=== PATIENT | male | born 1950 | race Caucasian/White ===

== ENCOUNTER 2017-09-04 13:26 | Emergency (ER) | payer MEDICARE, OTHER ==
--- NOTE | 2017-09-04 13:54 | EDM.PDOC ---
ED HPI GENERAL MEDICAL PROBLEM - General Chief Complaint: Lower Extremity Injury/Pain Stated Complaint: RT KNEE HURTS Time Seen by Provider: 09/04/17 13:28 Source of Information: Reports: Patient History Limitations: Reports: No Limitations - History of Present Illness INITIAL COMMENTS - FREE TEXT/NARRATIVE: HISTORY AND PHYSICAL: History of present illness: Patient is a 67-year-old male who presents to the emergency room today with complaints of right anterior and medial knee pain x 2 weeks. Pain is present with weightbearing and ambulation. He states this has been ongoing over the past 2 weeks. He has no known injury, trauma or falls. Has been using ibuprofen [id number] with minimal relief. He denies any numbness or tingling to the distal extremity. Review of systems: As per history of present illness and below otherwise all systems reviewed and negative. Past medical history: As per history of present illness and as reviewed below otherwise noncontributory. Surgical history: As per history of present illness and as reviewed below otherwise noncontributory. Social history: No reported history of drug or alcohol abuse. Family history: As per history of present illness and as reviewed below otherwise noncontributory. Physical exam: General: Well-developed and well-nourished 67-year-old male. Alert and oriented. Nontoxic appearing and in no acute distress. HEENT: Atraumatic, normocephalic, pupils equal and reactive bilaterally, negative for conjunctival pallor or scleral icterus, mucous membranes moist, throat clear, neck supple, nontender, trachea midline. No drooling or trismus noted. No meningeal signs Lungs: Clear to auscultation, breath sounds equal bilaterally, chest nontender. Heart: S1S2, regular rate and rhythm without overt murmur Abdomen: Soft, nondistended, nontender. Negative for masses or hepatosplenomegaly. Negative for costovertebral tenderness. Pelvis: Stable nontender. Genitourinary: Deferred. Rectal: Deferred. Skin: Intact, warm, dry. No lesions or rashes noted. Extremities: Atraumatic, no knee instability , mild tenderness with palpation to the right medial patella. No popliteal, calf, purcell tenderness or pain. He is negative for cords or calf pain. Neurovascular unremarkable. Neuro: Awake, alert, oriented. Cranial nerves II through XII unremarkable. Cerebellum unremarkable. Motor and sensory unremarkable throughout. Exam nonfocal. Notes: Skin appears intact, no evidence of erythema or cellulitis. X-ray shows right knee joint effusion, subluxation of the patellar laterally in relation to the patellar groove. No fractures noted. We discussed the limitations of x-ray. Will place patient in a knee brace and provided crutches. He declined crutches states he does use a cane which she has available to him. Discussed appropriate follow-up with the orthopedic provider as needs further evaluation/management next week. #15 Tramadol RX. Medication education completed. Both patient and voice understanding and are agreeable to plan of care. They deny any further questions at this time. Diagnostics: Xray Therapeutics: Knee brace, crutches Impression: Right knee joint effusion Plan: 1. Rice, elevate and ice the affected extremity. Please use the brace and cane to be non-weight bearing. 2. Tylenol and/or ibuprofen as needed for pain management. Tramadol for moderate /severe pain. Will cause drowsiness, so do not take while driving or needing to be functioning outside the house. 3. Follow-up with orthopedics next week. Return to the ED as needed and as discussed. Definitive disposition and diagnosis as appropriate pending reevaluation and review of above. Duration: Week(s): Location: Reports: Lower Extremity, Right right knee Pain Score (Numeric/FACES): 9 - Related Data Allergies Allergy/AdvReac Type Severity Reaction Status Date / Time nicotine Allergy Rash Verified 09/04/17 13:39 Home Meds: Home Meds DULoxetine [Cymbalta] 60 mg PO DAILY 10/22/13 [History] Levothyroxine [Levothroid] 0.15 mg PO DAILY 10/22/13 [History] [place] Carbonate [Eskalith] 300 mg PO QAM 10/22/13 [History] Moexipril HCl [Moexipril] 15 mg PO DAILY 10/22/13 [History] amLODIPine Besylate [Amlodipine Besylate] 10 mg PO DAILY 10/22/13 [History] lamoTRIgine [Lamictal] 200 mg PO BID 10/22/13 [History] Ibuprofen [Motrin] 600 mg PO Q8H PRN 08/26/15 [History] Clopidogrel [Plavix] 75 mg PO DAILY 04/11/16 [History] [place] Carbonate 600 mg PO BEDTIME 04/11/16 [History] Nitroglycerin [Nitrostat] 0.4 mg SL Q5M PRN 04/11/16 [History] atorvaSTATin Calcium [Atorvastatin Calcium] 40 mg PO DAILY 04/11/16 [History] Past Medical History HEENT History: Reports: None Other HEENT History: glasses Cardiovascular History: Reports: Hypertension, Other (See Below) Other Cardiovascular History: percarditis Respiratory History: Reports: None Gastrointestinal History: Reports: None Genitourinary History: Reports: None Musculoskeletal History: Reports: None Neurological History: Reports: None Psychiatric History: Reports: Bipolar Endocrine/Metabolic History: Reports: Hypothyroidism Hematologic History: Reports: None Immunologic History: Reports: None Oncologic (Cancer) History: Reports: None Dermatologic History: Reports: None - Infectious Disease History Infectious Disease History: Reports: Mumps - Past Surgical History Head Surgeries/Procedures: Reports: None Cardiovascular Surgical History: Reports: Coronary Artery Stent Social & Family History - Family History Family Medical History: Noncontributory - Tobacco Use Smoking Status *Q: Former Smoker Used Tobacco, but Quit: Yes Month/Year Tobacco Last Used: 2 years - Caffeine Use Caffeine Use: Reports: Coffee - Alcohol Use Days Per Week of Alcohol Use: 1 Number of Drinks Per Day: 2 Total Drinks Per Week: 2 - Recreational Drug Use Recreational Drug Use: No Review of Systems - Review of Systems Review Of Systems: ROS reveals no pertinent complaints other than HPI. ED EXAM, GENERAL - Physical Exam Exam: See Below (See dictation) Course - Vital Signs Last Recorded V/S: Last Vital Signs Temp 97.0 F 09/04/17 13:39 Pulse 73 09/04/17 13:39 Resp 18 09/04/17 13:39 BP 148/85 H 09/04/17 13:39 Pulse Ox 97 09/04/17 13:39 - Orders/Labs/Meds Orders: Active Orders 24 hr Category Date Time Status Knee 3V Rt [CR] Stat Exams 09/04/17 13:46 Ordered DME for Discharge [COMM] Stat Oth 09/04/17 14:21 Ordered Departure - Departure Time of Disposition: 14:33 Disposition: Home, Self-Care 01 Clinical Impression: Knee effusion, right - Discharge Information Referrals: PCP,None [Primary Care Provider] - Forms: ED Department Discharge Additional Instructions: The following information is given to patients seen in the emergency department who are being discharged to home. This information is to outline your options for follow-up care. We provide all patients seen in our emergency department with a follow-up referral. The need for follow-up, as well as the timing and circumstances, are variable depending upon the specifics of your emergency department visit. If you don't have a primary care physician on staff, we will provide you with a referral. We always advise you to contact your personal physician following an emergency department visit to inform them of the circumstance of the visit and for follow-up with them and/or the need for any referrals to a consulting specialist. The emergency department will also refer you to a specialist when appropriate. This referral assures that you have the opportunity for follow-up care with a specialist. All of these measure are taken in an effort to provide you with optimal care, which includes your follow-up. Under all circumstances we always encourage you to contact your private physician who remains a resource for coordinating your care. When calling for follow-up care, please make the office aware that this follow-up is from your recent emergency room visit. If for any reason you are refused follow-up, please contact the [facility] Emergency Department at and asked to speak to the emergency department charge nurse. [facility] Special[facility] - Orth[facility] Clinic [address], [address] [place] [address] 1. Rice, elevate and ice the affected extremity. Please use the brace and cane to be non-weight bearing. 2. Tylenol and/or ibuprofen as needed for pain management. Tramadol for moderate /severe pain. Will cause drowsiness, so do not take while driving or needing to be functioning outside the house. 3. Follow-up with orthopedics next week. Return to the ED as needed and as discussed. - My Orders Last 24 Hours: My Active Orders 09/04/17 13:46 Knee 3V Rt [CR] Stat 09/04/17 14:21 DME for Discharge [COMM] Stat - Assessment/Plan Last 24 Hours: My Active Orders 09/04/17 13:46 Knee 3V Rt [CR] Stat 09/04/17 14:21 DME for Discharge [COMM] Stat
[2017-09-04 15:10] VITALS: BP 136/78
--- NOTE | 2017-09-06 09:10 | CR ---
EXAM DATE: 09/04/17 PATIENT'S AGE: 67 Patient: CHRIS YUN Facility: [place], [place] Site . Site : 1950 Study: XRay Knee Right [id number]/[id number] 2:08:12 PM Ordering Physician: Doctor Delgado Final Report: INDICATION: Pain. FINDINGS: Three views of the right knee were obtained. There is a joint effusion. There is no acute fracture seen or dislocation. There are minimal spurs off the patella. The right patella is slightly subluxed laterally in relationship to patellar groove. IMPRESSION: Right knee joint effusion. Subluxation of the patella laterally in relationship to the patellar groove. No acute fracture seen. Dictated by Hamilton Win MD @ 09/04/2017 2:24:54 PM Dictated by: Hamilton Win MD @ 09/04/2017 14:25:12 (Electronic Signature) Report Signed by Proxy. [email or web address]
== END 2017-09-04 15:00 | disposition home or self-care (01) ==
LOC: MW.ED 13:26
DX: M25.461 Effusion, right knee (principal); I10 Essential (primary) hypertension; F31.9 Bipolar disorder, unspecified; E03.9 Hypothyroidism, unspecified; Z87.891 Personal history of nicotine dependence; Z91.09 Other allergy status, other than to drugs and biological substances; Z79.899 Other long term (current) drug therapy
CPT/HCPCS: 73562-26-RT; 73562-RT; 99283

== ENCOUNTER 2017-10-22 09:50 | Day surgery (SDC) | payer MEDICARE ==
[~2017-10-22 09:50] MED LIST: Lactated Ringers 1,000 ML IV SCH
[2017-10-22] MEDS ORDERED: Lidocaine 2% 5 ML SDV ONE (09:53)
[2017-10-22] MEDS ORDERED: Propofol 200 MG/20 ML SDV ONE ×2 (09:54→10:56)
[2017-10-22] MEDS ORDERED: fentaNYL 100 MCG/2 ML SDV ONE (09:54)
--- NOTE | 2017-10-22 10:22 | PCM.PREANE ---
Preanesthetic Assessment - Anesthesia/Transfusion/Family Hx Anesthesia History: Prior Anesthesia Without Reaction Family History of Anesthesia Reaction: No Transfusion History: No Prior Transfusion(s) - Review of Systems General: No Symptoms Pulmonary: No Symptoms Cardiovascular: No Symptoms Gastrointestinal: No Symptoms Neurological: No Symptoms Other: Reports: None - Physical Assessment NPO Status Date: 10/21/17 NPO Status Time: 23:00 Height: 5 ft 7 in Weight: 99.337 kg ASA Class: 3 Mental Status: Alert & Oriented x3 Airway Class: Mallampati = 2 Dentition: Reports: Normal Dentition Thyro-Mental Finger Breadths: 2 Mouth Opening Finger Breadths: 2 ROM/Head Extension: Full Lungs: Clear to Auscultation, Normal Respiratory Effort Cardiovascular: Regular Rate, Regular Rhythm - Allergies Allergies/Adverse Reactions: Allergies Allergy/AdvReac Type Severity Reaction Status Date / Time nicotine Allergy Rash Verified 10/18/17 14:51 - Acknowledgements Anesthesia Type Planned: MAC Pt an Appropriate Candidate for the Planned Anesthesia: Yes Alternatives and Risks of Anesthesia Discussed w Pt/Guardian: Yes Pt/Guardian Understands and Agrees with Anesthesia Plan: Yes PreAnesthesia Questionnaire HEENT History: Reports: Other (See Below) Other HEENT History: wears glasses Cardiovascular History: Reports: CAD (With two heart stents), High Cholesterol, Hypertension Other Cardiovascular History: percarditis Respiratory History: Reports: Sleep Apnea Other Respiratory History: uses CPAP Gastrointestinal History: Reports: None Genitourinary History: Reports: None Musculoskeletal History: Reports: None Neurological History: Reports: Other (See Below) Other Neuro History: some dementia Psychiatric History: Reports: Bipolar (Controlled) Endocrine/Metabolic History: Reports: Hypothyroidism, Obesity/BMI 30+ Hematologic History: Reports: None Immunologic History: Reports: None Oncologic (Cancer) History: Reports: None Dermatologic History: Reports: None - Infectious Disease History Infectious Disease History: Reports: Mumps - Past Surgical History Cardiovascular Surgical History: Reports: Coronary Artery Stent Other Cardiovascular Surgeries/Procedures: angioplasty with stent insertion x2 GI Surgical History: Reports: Colonoscopy, EGD - SUBSTANCE USE Smoking Status *Q: Former Smoker Tobacco Use Within Last Twelve Months: No Recreational Drug Use History: No - HOME MEDS Home Medications: Home Meds DULoxetine [Cymbalta] 60 mg PO BEDTIME 10/22/13 [History] Levothyroxine [Levothroid] 0.15 mg PO QAM 10/22/13 [History] [place] Carbonate [Eskalith] 300 mg PO QAM 10/22/13 [History] Moexipril HCl [Moexipril] 15 mg PO QAM 10/22/13 [History] amLODIPine Besylate [Amlodipine Besylate] 10 mg PO QAM 10/22/13 [History] lamoTRIgine [Lamictal] 200 mg PO BID 10/22/13 [History] Clopidogrel [Plavix] 75 mg PO DAILY 04/11/16 [History] [place] Carbonate 600 mg PO BEDTIME 04/11/16 [History] Nitroglycerin [Nitrostat] 0.4 mg SL Q5M PRN 04/11/16 [History] atorvaSTATin Calcium [Atorvastatin Calcium] 40 mg PO BEDTIME 04/11/16 [History] Cholecalciferol (Vitamin D3) [Vitamin D3] 1,000 unit PO DAILY 10/18/17 [History] Donepezil HCl 10 mg PO QAM 10/18/17 [History] Folic Acid 800 mcg PO DAILY 10/18/17 [History] - CURRENT (IN HOUSE) MEDS Current Meds: Current Medications Lactated Ringer's (Ringers, Lactated) 1,000 mls @ 125 mls/hr IV ASDIRECTED ANNETTE Discontinued Medications Fentanyl (Sublimaze) Confirm Administered Dose 100 mcg .ROUTE .STK-MED ONE Stop: 10/22/17 09:55 Lactated Ringer's (Ringers, Lactated) 1,000 mls @ 125 mls/hr IV ASDIRECTED [facility] Lidocaine (Xylocaine-Mpf 2%) Confirm Administered Dose 5 ml .ROUTE .STK-MED ONE Stop: 10/22/17 09:54 Propofol (Diprivan 20 Ml) Confirm Administered Dose 400 mg .ROUTE .STK-MED ONE Stop: 10/22/17 09:55
--- NOTE | 2017-10-22 11:13 | PCM.OPNOTE ---
- General Post-Op/Procedure Note Date of Surgery/Procedure: 10/22/17 Operative Procedure(s): Colonoscopy w/ cold rectal polypectomy Pre Op Diagnosis: Desire for colorectal cancer screening Post-Op Diagnosis: Rectal polyp. Sigmoid diverticulosis. Anesthesia Technique: MAC (ASA III) Primary Surgeon: Néstor Paul Condition: Good Free Text/Narrative:: DICTATION [id number] CPT CODE 81441
[2017-10-22] MEDS ORDERED: Lactated Ringers 1,000 ML IV SCH (11:15)
--- NOTE | 2017-10-22 11:34 | PCM.POSTAN ---
POST ANESTHESIA ASSESSMENT - MENTAL STATUS Mental Status: Alert, Oriented - RESPIRATORY Respiratory Status: Respiratory Rate WNL, Airway Patent, O2 Saturation Stable - CARDIOVASCULAR CV Status: Pulse Rate WNL, Blood Pressure Stable - GASTROINTESTINAL GI Status: No Symptoms - POST OP HYDRATION Hydration Status: Adequate & Stable
--- NOTE | 2017-10-22 11:55 | PCM48HPAN ---
Post Anesthesia Note - EVALUATION WITHIN 48HRS OF ANESTHETIC Vital Signs in Normal Range: Yes Patient Participated in Evaluation: Yes Respiratory Function Stable: Yes Airway Patent: Yes Cardiovascular Function Stable: Yes Hydration Status Stable: Yes Pain Control Satisfactory: Yes Nausea and Vomiting Control Satisfactory: Yes Mental Status Recovered: Yes Resp Rate: 14
[2017-10-22 12:00] VITALS: BP 145/83
--- NOTE | 2017-10-22 12:35 | OR ---
SURGEON: Néstor Paul M.D. DATE OF PROCEDURE: 10/22/2017 OPERATION PERFORMED: Colonoscopy with cold rectal polypectomy. ANESTHESIA: MAC. ASA CLASSIFICATION: III. PREOPERATIVE DIAGNOSIS: Desire for colorectal cancer screening. POSTOPERATIVE DIAGNOSES: 1. Rectal polyp. 2. Sigmoid diverticulosis. DESCRIPTION OF PROCEDURE: The patient was taken to the endoscopy room and positioned on the endoscopy table in the left lateral decubitus position. Time-out was called for appropriate identification of the patient and procedure. Monitored anesthesia care was provided. The colonoscope was inserted into the rectum and advanced with minimal difficulty to the cecum where the colonoscope was retroflexed to visualize the ascending colon from below. The colonoscope was then straightened and slowly withdrawn. The cecum, ascending colon, hepatic flexure, transverse colon, splenic flexure, and descending colon showed no tumors, polyps, diverticula, angiodysplasia, or evidence of inflammatory bowel disease. Sigmoid colon demonstrates moderate diverticular change. No stricture, spasm, or bleeding was noted. The colonoscope was withdrawn to the rectum where a polyp was encountered. This was removed with multiple bites of the cold biopsy forceps. Minimal oozing was noted. The colonoscope was then retroflexed to visualize the anal orifice from above. No tumors or polyps were seen. The patient does have chronic hemorrhoidal changes, but nothing acute. No bleeding was noted. The colonoscope was straightened, the rectum aspirated, and the colonoscope removed. The patient tolerated the procedure well and was taken to recovery room in stable condition. BHUPINDER / ERICKSON /[id number]
== END 2017-10-22 11:50 | disposition home or self-care (01) ==
LOC: MW.SDS 09:50
PROVIDERS: ATTEND Surgery
DX: Z12.11 Encounter for screening for malignant neoplasm of colon (principal); K62.1 Rectal polyp; K57.30 Diverticulosis of large intestine without perforation or abscess without bleeding; E03.9 Hypothyroidism, unspecified; I25.10 Atherosclerotic heart disease of native coronary artery without angina pectoris; I10 Essential (primary) hypertension; M17.11 Unilateral primary osteoarthritis, right knee; G47.33 Obstructive sleep apnea (adult) (pediatric); Z99.89 Dependence on other enabling machines and devices; E66.9 Obesity, unspecified; Z68.34 Body mass index [BMI] 34.0-34.9, adult; F31.9 Bipolar disorder, unspecified; Z91.048 Other nonmedicinal substance allergy status; Z79.02 Long term (current) use of antithrombotics/antiplatelets; Z79.899 Other long term (current) drug therapy; Z87.891 Personal history of nicotine dependence
CPT/HCPCS: 88305; J2704; J3010; J7120

== ENCOUNTER 2018-01-06 10:29 | Emergency (ER) | payer MEDICARE ==
--- NOTE | 2018-01-06 11:12 | EDM.PDOC ---
ED HPI GENERAL MEDICAL PROBLEM - General Chief Complaint: Upper Extremity Injury/Pain Stated Complaint: LT SHOULDER HURTS Time Seen by Provider: 01/06/18 10:34 Source of Information: Reports: Patient History Limitations: Reports: No Limitations - History of Present Illness INITIAL COMMENTS - FREE TEXT/NARRATIVE: History of present illness: []Patient complains of left shoulder and clavicular pain that began after falling out of a boat 2 weeks ago. His pain has not improved and has been persistent. He denies any chest pain or shortness of breath, fevers or cough. Patient has been taking ibuprofen without full relief and had an old prescription of tramadol which is helping.. Review of systems: As per history of present illness and below otherwise all systems reviewed and negative. Past medical history: As per history of present illness and as reviewed below otherwise noncontributory. Surgical history: As per history of present illness and as reviewed below otherwise noncontributory. Social history: No reported history of drug or alcohol abuse. Family history: As per history of present illness and as reviewed below otherwise noncontributory. Physical exam: General: Well developed, well nourished in NAD HEENT: Atraumatic, normocephalic, pupils reactive, negative for conjunctival pallor or scleral icterus, mucous membranes moist, throat clear, neck supple, nontender, trachea midline. Lungs: Clear to auscultation, breath sounds equal bilaterally, abnormal tenderness over her left distal third clavicle with out gross deformity Heart: S1S2, regular, negative for clicks, rubs, or JVD. Abdomen: Soft, nondistended, nontender. Negative for masses or hepatosplenomegaly. Negative for costovertebral tenderness. Pelvis: Stable nontender. Genitourinary: Deferred. Rectal: Deferred. Extremities: Atraumatic, negative for cords or calf pain. Neurovascular unremarkable. Neuro: Awake, alert, oriented. Cranial nerves II through XII unremarkable. Cerebellum unremarkable. Motor and sensory unremarkable throughout. Exam nonfocal. Skin:warm and dry Diagnostics: Left shoulder and clavicular x-ray shows nondisplaced clavicular fracture third Therapeutics: None ED Course: Unremarkable Impression: Nondisplaced distal third clavicular fracture Prescriptions: Tramadol Plan: Where the arm sling at home, tramadol for pain, follow-up with primary care, turn if symptoms worsen or change Definitive disposition and diagnosis as appropriate pending reevaluation and review of above. Left Shoulder Pain Score (Numeric/FACES): 9 - Related Data Allergies Allergy/AdvReac Type Severity Reaction Status Date / Time nicotine Allergy Rash Verified 01/06/18 11:04 Home Meds: Home Meds DULoxetine [Cymbalta] 60 mg PO BEDTIME 10/22/13 [History] Levothyroxine [Levothroid] 0.15 mg PO QAM 10/22/13 [History] [place] Carbonate [Eskalith] 300 mg PO QAM 10/22/13 [History] Moexipril HCl [Moexipril] 15 mg PO QAM 10/22/13 [History] amLODIPine Besylate [Amlodipine Besylate] 10 mg PO QAM 10/22/13 [History] lamoTRIgine [Lamictal] 200 mg PO BID 10/22/13 [History] Clopidogrel [Plavix] 75 mg PO ASDIRECTED 04/11/16 [History] [place] Carbonate 300 mg PO BEDTIME 04/11/16 [History] Nitroglycerin [Nitrostat] 0.4 mg SL Q5M PRN 04/11/16 [History] atorvaSTATin Calcium [Atorvastatin Calcium] 40 mg PO BEDTIME 04/11/16 [History] Cholecalciferol (Vitamin D3) [Vitamin D3] 1,000 unit PO DAILY 10/18/17 [History] Donepezil HCl 10 mg PO QAM 10/18/17 [History] Folic Acid 800 mcg PO DAILY 10/18/17 [History] traMADol HCl [Tramadol HCl] 50 mg PO Q6H PRN #16 tablet 01/06/18 [Rx] Past Medical History HEENT History: Reports: Other (See Below) Other HEENT History: wears glasses Cardiovascular History: Reports: CAD (With two heart stents), High Cholesterol, Hypertension Other Cardiovascular History: percarditis Respiratory History: Reports: Sleep Apnea Other Respiratory History: uses CPAP Gastrointestinal History: Reports: None Genitourinary History: Reports: None Musculoskeletal History: Reports: None Neurological History: Reports: Other (See Below) Other Neuro History: some dementia Psychiatric History: Reports: Bipolar (Controlled) Endocrine/Metabolic History: Reports: Hypothyroidism, Obesity/BMI 30+ Hematologic History: Reports: None Immunologic History: Reports: None Oncologic (Cancer) History: Reports: None Dermatologic History: Reports: None - Infectious Disease History Infectious Disease History: Reports: Mumps - Past Surgical History Cardiovascular Surgical History: Reports: Coronary Artery Stent Other Cardiovascular Surgeries/Procedures: angioplasty with stent insertion x2 GI Surgical History: Reports: Colonoscopy, EGD Social & Family History - Family History Family Medical History: Noncontributory - Caffeine Use Caffeine Use: Reports: Coffee Review of Systems - Review of Systems Review Of Systems: ROS reveals no pertinent complaints other than HPI. ED EXAM, GENERAL - Physical Exam Exam: See Below (The history of present illness) Course - Vital Signs Last Recorded V/S: Last Vital Signs Temp 97.5 F 01/06/18 11:05 Pulse 71 01/06/18 11:05 Resp 18 01/06/18 11:05 BP 108/71 01/06/18 11:05 Pulse Ox 97 01/06/18 11:05 - Orders/Labs/Meds Orders: Active Orders 24 hr Category Date Time Status Clavicle Lt [CR] Stat Exams 01/06/18 11:12 Taken Shoulder Comp Lt [CR] Stat Exams 01/06/18 11:11 Taken Departure - Departure Time of Disposition: 11:40 Disposition: Home, Self-Care 01 Condition: Good Clinical Impression: Closed left clavicular fracture Qualifiers: Encounter type: initial encounter Clavicle location: shaft Fracture alignment: nondisplaced Qualified Code(s): S42.025A - Nondisplaced fracture of shaft of left clavicle, initial encounter for closed fracture - Discharge Information *PRESCRIPTION DRUG MONITORING PROGRAM REVIEWED*: No *COPY OF PRESCRIPTION DRUG MONITORING REPORT IN PATIENT RAINER: No Prescriptions: traMADol HCl [Tramadol HCl] 50 mg PO Q6H PRN #16 tablet PRN Reason: Pain Referrals: Jn Winston MD [Primary Care Provider] - Forms: ED Department Discharge Additional Instructions: The following information is given to patients seen in the emergency department who are being discharged to home. This information is to outline your options for follow-up care. We provide all patients seen in our emergency department with a follow-up referral. The need for follow-up, as well as the timing and circumstances, are variable depending upon the specifics of your emergency department visit. If you don't have a primary care physician on staff, we will provide you with a referral. We always advise you to contact your personal physician following an emergency department visit to inform them of the circumstance of the visit and for follow-up with them and/or the need for any referrals to a consulting specialist. The emergency department will also refer you to a specialist when appropriate. This referral assures that you have the opportunity for follow-up care with a specialist. All of these measure are taken in an effort to provide you with optimal care, which includes your follow-up. Under all circumstances we always encourage you to contact your private physician who remains a resource for coordinating your care. When calling for follow-up care, please make the office aware that this follow-up is from your recent emergency room visit. If for any reason you are refused follow-up, please contact the [facility] Emergency Department at and asked to speak to the emergency department charge nurse. Tramadol as directed, use her arm sling at home for comfort, follow up with primary care as needed, return to ER if any symptoms worsen or change. [facility] [address] [place] [id number] - My Orders Last 24 Hours: My Active Orders 01/06/18 11:11 Shoulder Comp Lt [CR] Stat 01/06/18 11:12 Clavicle Lt [CR] Stat - Assessment/Plan Last 24 Hours: My Active Orders 01/06/18 11:11 Shoulder Comp Lt [CR] Stat 01/06/18 11:12 Clavicle Lt [CR] Stat
--- NOTE | 2018-01-06 11:48 | CR ---
EXAMINATION: Left shoulder and left clavicle HISTORY: Pain COMPARISON: None TECHNIQUE: 3 views of the left shoulder and 2 views clavicle FINDINGS: There is a nondisplaced mid left clavicle fracture identified. The remaining osseous struct ures and joint spaces appear intact. Bone mineralization is normal. Mild acromioclavicular osteoarthr itic changes. IMPRESSION: 1. Nondisplaced mid left clavicle fracture.
[2018-01-06 11:59] VITALS: BP 133/83
== END 2018-01-06 12:01 | disposition home or self-care (01) ==
LOC: MW.ED 10:29
DX: S42.025A Nondisplaced fracture of shaft of left clavicle, initial encounter for closed fracture (principal); I10 Essential (primary) hypertension; I25.10 Atherosclerotic heart disease of native coronary artery without angina pectoris; E78.00 Pure hypercholesterolemia, unspecified; E03.9 Hypothyroidism, unspecified; W17.89XA Other fall from one level to another, initial encounter; Y92.814 Boat as the place of occurrence of the external cause; Z88.8 Allergy status to other drugs, medicaments and biological substances; Z79.899 Other long term (current) drug therapy; Z87.891 Personal history of nicotine dependence
CPT/HCPCS: 73000-26-LT; 73000-LT; 73030-26-LT; 73030-LT; 99282; 99283

== ENCOUNTER 2019-03-24 16:22 | Emergency (ER) | payer MEDICARE ==
[2019-03-24 16:42] VITALS: BP 133/79; PULSE 82
[2019-03-24] MEDS ORDERED: Diphtheria,Pertussis(Acell),Tetanus Vaccine 0.5 ML Syringe IM ONE (17:19)
[2019-03-24] MEDS ORDERED: Bacitracin Oint 1 GM U/D Packet TOP ONE (17:19)
--- NOTE | 2019-03-24 17:25 | EDM.PDOC ---
ED HPI GENERAL MEDICAL PROBLEM - General Chief Complaint: Wound Recheck Stated Complaint: FISH HOOK STUCK IN RIGHT MIDDLE FINGER Time Seen by Provider: 03/24/19 17:19 Source of Information: Reports: Patient History Limitations: Reports: Intoxication - History of Present Illness INITIAL COMMENTS - FREE TEXT/NARRATIVE: HISTORY AND PHYSICAL: History of present illness: Patient is a 69-year-old male presents to the ED with complaint of fish hook to his finger that occurred just prior to arrival to the ED. Patient is not UTD on his tetanus. Patient has no other complaints at this time. Review of systems: As per history of present illness and below otherwise all systems reviewed and negative. Past medical history: As per history of present illness and as reviewed below otherwise noncontributory. Surgical history: As per history of present illness and as reviewed below otherwise noncontributory. Social history: No reported history of drug or alcohol abuse. Family history: As per history of present illness and as reviewed below otherwise noncontributory. Physical exam: General: Patient sitting comfortably in no acute distress and nontoxic appearing HEENT: Atraumatic, normocephalic, pupils reactive, negative for conjunctival pallor or scleral icterus, mucous membranes moist, throat clear, neck supple, nontender, trachea midline. No meningeal signs. Lungs: Clear to auscultation, breath sounds equal bilaterally, chest nontender. Heart: S1S2, regular, negative for clicks, rubs, or overt murmur. Abdomen: Soft, nondistended, nontender. Negative for masses or hepatosplenomegaly. Negative for costovertebral tenderness. No rigidity, rebound , guarding. Pelvis: Stable nontender. Genitourinary: Deferred. Rectal: Deferred. Extremities: There is a 3 prong fish hook to the distal right middle finger. negative for cords or calf pain. Neurovascular unremarkable. Neuro: Awake, alert, oriented. Cranial nerves II through XII unremarkable. Cerebellum unremarkable. Motor and sensory unremarkable throughout. Exam nonfocal. Notes: The two extra prongs were clipped. A piece of gauzed was placed underneath the hook and light pressure applied downward on the hook and the gauze was pulled swiftly and successfully pulled the hook out with minimal bleeding. Patient tolerated well. Wound dressing placed by nursing staff. Diagnostics: Therapeutics: tdap Prescriptions: Impression: Foreign body removal of skin Definitive disposition and diagnosis as appropriate pending reevaluation and review of above. right middle finger Pain Score (Numeric/FACES): 6 - Related Data Allergies Allergy/AdvReac Type Severity Reaction Status Date / Time nicotine Allergy Rash Verified 03/24/19 16:42 Home Meds: Home Meds DULoxetine [Cymbalta] 60 mg PO BEDTIME 10/22/13 [History] Levothyroxine [Levothroid] 0.15 mg PO QAM 10/22/13 [History] [place] Carbonate [Eskalith] 300 mg PO QAM 10/22/13 [History] Moexipril HCl [Moexipril] 15 mg PO QAM 10/22/13 [History] amLODIPine Besylate [Amlodipine Besylate] 10 mg PO QAM 10/22/13 [History] lamoTRIgine [Lamictal] 200 mg PO BID 10/22/13 [History] Clopidogrel [Plavix] 75 mg PO ASDIRECTED 04/11/16 [History] [place] Carbonate 300 mg PO BEDTIME 04/11/16 [History] Nitroglycerin [Nitrostat] 0.4 mg SL Q5M PRN 04/11/16 [History] atorvaSTATin Calcium [Atorvastatin Calcium] 40 mg PO BEDTIME 04/11/16 [History] Donepezil HCl 10 mg PO QAM 10/18/17 [History] Past Medical History HEENT History: Reports: Other (See Below) Other HEENT History: wears glasses Cardiovascular History: Reports: CAD, High Cholesterol, Hypertension Other Cardiovascular History: percarditis Respiratory History: Reports: Sleep Apnea Other Respiratory History: uses CPAP Gastrointestinal History: Reports: None Genitourinary History: Reports: None Musculoskeletal History: Reports: None Neurological History: Reports: Other (See Below) Other Neuro History: some dementia Psychiatric History: Reports: Anxiety, Bipolar, Depression Endocrine/Metabolic History: Reports: Hypothyroidism, Obesity/BMI 30+ Hematologic History: Reports: None Immunologic History: Reports: None Oncologic (Cancer) History: Reports: None Dermatologic History: Reports: None - Infectious Disease History Infectious Disease History: Reports: Chicken Pox - Past Surgical History Head Surgeries/Procedures: Reports: None Cardiovascular Surgical History: Reports: Coronary Artery Stent Other Cardiovascular Surgeries/Procedures: angioplasty with stent insertion x2 GI Surgical History: Reports: Colonoscopy, EGD Social & Family History - Family History Family Medical History: Noncontributory - Tobacco Use Smoking Status *Q: Never Smoker - Caffeine Use Caffeine Use: Reports: Coffee - Recreational Drug Use Recreational Drug Use: No ED ROS GENERAL - Review of Systems Review Of Systems: Comprehensive ROS is negative, except as noted in HPI. ED EXAM, SKIN/RASH Exam: See Below (see dictation) Course - Vital Signs Last Recorded V/S: Last Vital Signs Temp 97.8 F 03/24/19 16:40 Pulse 82 03/24/19 16:40 Resp 16 03/24/19 16:40 BP 133/79 03/24/19 16:40 Pulse Ox 95 03/24/19 16:40 - Orders/Labs/Meds Orders: Active Orders 24 hr Category Date Time Status Vaccines to be Administered [RC] PER UNIT ROUTINE Care 03/24/19 17:19 Ordered Meds: Medications Discontinued Medications Generic Name Dose Route Start Last Admin Trade Name Freq PRN Reason Stop Dose Admin Bacitracin 1 dose 03/24/19 17:19 Bacitracin Oint 1 Gm TOP 03/24/19 17:20 ONETIME ONE Diphtheria/Tetanus/Acell Pertussis 0.5 ml 03/24/19 17:19 Adacel IM 03/24/19 17:20 .ONCE ONE Departure - Departure Time of Disposition: 17:25 Disposition: Home, Self-Care 01 Condition: Good Clinical Impression: Fish hook injury of finger of right hand - Discharge Information Referrals: Jn Winston MD [Primary Care Provider] - Forms: ED Department Discharge Care Plan Goals: The following information is given to patients seen in the emergency department who are being discharged to home. This information is to outline your options for follow-up care. We provide all patients seen in our emergency department with a follow-up referral. The need for follow-up, as well as the timing and circumstances, are variable depending upon the specifics of your emergency department visit. If you don't have a primary care physician on staff, we will provide you with a referral. We always advise you to contact your personal physician following an emergency department visit to inform them of the circumstance of the visit and for follow-up with them and/or the need for any referrals to a consulting specialist. The emergency department will also refer you to a specialist when appropriate. This referral assures that you have the opportunity for follow-up care with a specialist. All of these measure are taken in an effort to provide you with optimal care, which includes your follow-up. Under all circumstances we always encourage you to contact your private physician who remains a resource for coordinating your care. When calling for follow-up care, please make the office aware that this follow-up is from your recent emergency room visit. If for any reason you are refused follow-up, please contact the [facility] Emergency Department at and asked to speak to the emergency department charge nurse. [facility] [address] [place] [address] [id number] [address] [id number] Keep the area clean and dry as instructed Follow up with primary care provider Return to ED as needed as discussed Sepsis Event Note - Evaluation Sepsis Screening Result: No Definite Risk - Focused Exam Vital Signs: Vital Signs Temp Pulse Resp BP Pulse Ox 03/24/19 16:40 97.8 F 82 16 133/79 95 Date Exam was Performed: 03/24/19 Time Exam was Performed: 17:25 - My Orders Last 24 Hours: My Active Orders 03/24/19 17:19 Vaccines to be Administered [RC] PER UNIT ROUTINE - Assessment/Plan Last 24 Hours: My Active Orders 03/24/19 17:19 Vaccines to be Administered [RC] PER UNIT ROUTINE
== END 2019-03-24 17:47 | disposition home or self-care (01) ==
LOC: MW.ED 16:22
DX: S60.452A Superficial foreign body of right middle finger, initial encounter (principal); Z23 Encounter for immunization; I10 Essential (primary) hypertension; I25.10 Atherosclerotic heart disease of native coronary artery without angina pectoris; E78.00 Pure hypercholesterolemia, unspecified; F41.9 Anxiety disorder, unspecified; F32.9 Major depressive disorder, single episode, unspecified; E03.9 Hypothyroidism, unspecified; E66.9 Obesity, unspecified; Z68.35 Body mass index [BMI] 35.0-35.9, adult; Z88.8 Allergy status to other drugs, medicaments and biological substances; Z79.899 Other long term (current) drug therapy; Z79.02 Long term (current) use of antithrombotics/antiplatelets; W45.8XXA Other foreign body or object entering through skin, initial encounter
CPT/HCPCS: 90471; 90715; 99283; 99283-25

== ENCOUNTER 2022-01-15 17:54 | Emergency (ER) | payer OTHER, MEDICARE ==
[2022-01-15] MEDS: Diphtheria,Pertussis(Acell),Tetanus Vaccine 0.5 ML Syringe IM ONE (18:41)
[2022-01-15 19:15] VITALS: BP 133/71; PULSE 75
[2022-01-15] MEDS: Acetaminophen 325 MG Tab PO ONE (19:30)
== END 2022-01-15 19:55 | disposition home or self-care (01) ==
LOC: MW.ED 17:54
DX: S09.90XA Unspecified injury of head, initial encounter (principal); I25.10 Atherosclerotic heart disease of native coronary artery without angina pectoris; I10 Essential (primary) hypertension; E66.9 Obesity, unspecified; Z68.44 Body mass index [BMI] 60.0-69.9, adult; Z79.899 Other long term (current) drug therapy; Z88.8 Allergy status to other drugs, medicaments and biological substances; Z23 Encounter for immunization; V69.00XA Driver of heavy transport vehicle injured in collision with unspecified motor vehicles in nontraffic accident, initial encounter; Y92.410 Unspecified street and highway as the place of occurrence of the external cause
CPT/HCPCS: 70450; 72125; 99284; A9270

== ENCOUNTER 2022-12-21 15:53 | Emergency (ER) | payer MEDICARE ==
[2022-12-21] MEDS ORDERED: Sodium Chloride 0.9% 1,000 ML IV ONE (16:05)
[2022-12-21] MEDS ORDERED: Ketorolac 30 MG/ML SDV IVPUSH ONE (16:05)
[2022-12-21] MEDS ORDERED: Acetaminophen 500 MG Tab PO ONE (16:05)
[2022-12-21 17:11] LABS: CORONAVIRUS COVID-19 NAA POSITIVE (NEGATIVE); INFLUENZA A NAA NEGATIVE (NEGATIVE); INFLUENZA B NAA NEGATIVE (NEGATIVE)
[2022-12-21 18:02] LABS: BASOPHILS PERCENT AUTO 0.1 % (0.0-1.5); EOSINOPHILS PERCENT AUTO 0.2 % (0.0-7.0); HEMATOCRIT 33.6 % (38.0-50.0); HEMOGLOBIN 10.5 g/dL (13.0-17.0); LYMPHOCYTES ABSOLUTE AUTO 0.9 K/uL (0.6-2.4); LYMPHOCYTES PERCENT AUTO 9.1 % (16.0-40.0); MEAN CORPUSCULAR HEMOGLOBIN 33.9 pg (27.0-32.0); MEAN CORPUSCULAR HGB CONC 31.3 g/dL (31.0-37.0); MEAN CORPUSCULAR VOLUME 108.4 fL (80.0-98.0); MONOCYTES ABSOLUTE AUTO 1.1 K/uL (0.0-0.8); MONOCYTES PERCENT AUTO 11.8 % (0.0-15.0); NEUTROPHILS ABSOLUTE AUTO 7.6 K/uL (1.4-5.7); NEUTROPHILS PERCENT AUTO 78.8 % (48.0-80.0); NRBC ABSOLUTE 0 K/uL; PLATELET COUNT,PLT 199 K/uL (150-400); WHITE BLOOD CELL COUNT,WBC 9.66 K/uL (4.0-11.0)
[2022-12-21 18:20] LABS: LACTIC ACID 0.8 mmol/L (0.4-2.0)
[2022-12-21 18:22] LABS: A/G RATIO 0.9 (0.9-1.6); ALBUMIN 3.3 g/dL (3.4-5.0); BILIRUBIN TOTAL 0.2 mg/dL (0.2-1.0); CARBON DIOXIDE,CO2 23.3 mmol/L (21.0-32.0); CREATININE 1.4 mg/dL (0.8-1.3); EST CRCL DRUG DOSING (CG) 46.14 mL/min; MAGNESIUM 1.9 mg/dL (1.8-2.4); POTASSIUM,K 4.4 mmol/L (3.5-5.1); PROTEIN TOTAL,TP 7.1 g/dL (6.4-8.2)
[2022-12-21 18:29] VITALS: BP 124/76; PULSE 85
== END 2022-12-21 19:09 | disposition home or self-care (01) ==
LOC: MW.ED 15:53
DX: U07.1 COVID-19 (principal); I25.10 Atherosclerotic heart disease of native coronary artery without angina pectoris; I10 Essential (primary) hypertension; E78.00 Pure hypercholesterolemia, unspecified; E03.9 Hypothyroidism, unspecified; E66.9 Obesity, unspecified; Z68.33 Body mass index [BMI] 33.0-33.9, adult; Z91.048 Other nonmedicinal substance allergy status; Z79.899 Other long term (current) drug therapy; Z79.02 Long term (current) use of antithrombotics/antiplatelets
CPT/HCPCS: 0240U; 36415; 71045; 80053; 83605; 83735; 84484; 85025; 87040; 96361; 96374; 99283; A9270; J1885; J7030; 99284